=== PATIENT | male | born 1945 | race Caucasian/White ===

== ENCOUNTER → 2023-12-21 13:49 | Outpatient (REF) | payer MEDICARE, BC, SELFPAY | LOC: HWRCS 13:49 | PROVIDERS: ATTENDING PHYSICIAN Internal Medicine Cardiovascular Disease; FAMILY PHYSICIAN Internal Medicine | DX: R06.09 Other forms of dyspnea (principal); I35.1 Nonrheumatic aortic (valve) insufficiency; I71.20 Thoracic aortic aneurysm, without rupture, unspecified; I25.10 Atherosclerotic heart disease of native coronary artery without angina pectoris | CPT/HCPCS: 93306 ==

== ENCOUNTER → 2023-12-26 14:01 | Outpatient (REF) | payer MEDICARE, BC, SELFPAY | LOC: HWRAD 14:01 | PROVIDERS: ATTENDING PHYSICIAN Internal Medicine Cardiovascular Disease; FAMILY PHYSICIAN Internal Medicine | DX: R06.09 Other forms of dyspnea (principal); I35.1 Nonrheumatic aortic (valve) insufficiency; I71.20 Thoracic aortic aneurysm, without rupture, unspecified; I25.10 Atherosclerotic heart disease of native coronary artery without angina pectoris | CPT/HCPCS: 71275; Q9967 ==

== ENCOUNTER → 2024-01-03 10:47 | Outpatient (REF) | payer MEDICARE, BC, SELFPAY | LOC: HWRAD 10:47 | PROVIDERS: ATTENDING PHYSICIAN Internal Medicine Cardiovascular Disease; FAMILY PHYSICIAN Internal Medicine | DX: I71.20 Thoracic aortic aneurysm, without rupture, unspecified (principal) | CPT/HCPCS: 74174; Q9967 ==

== ENCOUNTER → 2024-01-25 08:33 | Outpatient (REF) | payer MEDICARE, BC, SELFPAY | LOC: DHCBC/DCA 08:33 | PROVIDERS: ATTENDING PHYSICIAN Internal Medicine Cardiovascular Disease; FAMILY PHYSICIAN Internal Medicine | DX: R06.09 Other forms of dyspnea (principal); I35.1 Nonrheumatic aortic (valve) insufficiency; I10 Essential (primary) hypertension | CPT/HCPCS: 78452; 93017; A9500; J2785 ==

== ENCOUNTER 2024-02-13 11:43 | Inpatient (IN) | payer MEDICARE, BC, SELFPAY ==
[2024-02-08 10:04] LABS: % Basophils 1.3 % (0-2); % Immature Granulocytes 0.2 % (0-0.5); % Lymphocytes 23.7 % (20.5-51.1); % Monocytes 7.3 % (1.7-9.3); % Neutrophils 60.5 % (42.2-75.2); Absolute Basophils 0.1 10^3/uL (0-0.2); Absolute Eosinophils 0.4 10^3/uL (0-0.7); Absolute Lymphocytes 1.3 10^3/uL (1.2-3.4); Absolute Monocytes 0.4 10^3/uL (0.1-0.6); Absolute Neutrophils 3.4 10^3/uL (1.4-6.5); Hematocrit 40.4 % (39.0-52.0); INR 1.03; Mean Corp Hgb Conc. 34.7 g/dL (33.0-37.0); Mean Corpuscular Hgb 31.3 pg (27.0-31.0); Mean Corpuscular Volume 90.4 fL (80.0-94.0); Mean Platelet Volume 10.4 fL (7.4-10.4); Nucleated Red Blood Cells % 0 % (-); PT 13.5 Sec (11.4-14.6); Platelet Count 164 10^3/uL (130-400); Red Blood Cell Count 4.47 10^6/uL (4.70-6.10); Red Cell Dist. Width 12.7 % (11.5-14.5); White Blood Cell Count 5.6 10^3/uL (4.8-10.8)
[2024-02-08 10:20] LABS: Blood Urea Nitrogen 26 mg/dl (9-20); Calcium 9.8 mg/dl (8.4-10.2); Carbon Dioxide 27 mmol/L (22-30); Chloride 105 mmol/L (98-107); Glucose 103 mg/dl (70-99); Potassium 4.5 mmol/L (3.5-5.1); Sodium 145 mmol/L (135-145); eGFR 55.88
[2024-02-13] VITALS (20 sets, daily range): BP systolic 108–165; BP diastolic 65–92; BMI 24.4
--- NOTE | 2024-02-13 11:52 | W.SUR.PREOP ---
Pre-Operative Surgical Note
-
I have examined this patient prior to the performance of the scheduled procedure.
The patient's condition is unchanged from the time of the current History and
Physical and the patient is able to undergo the scheduled procedure.
[2024-02-13] MEDS: PERIDEX 0.12% ORAL RINSE 15 ML PO (12:33)
[2024-02-13] MEDS: BACTROBAN NASAL 1 GRAM NASAL (12:33)
[2024-02-13] MEDS: NSS 500 IV (12:34)
[2024-02-13 16:03] LABS: ACT-LR - POC 385 Seconds (116-155)
[2024-02-13 16:39] LABS: ACT-LR - POC 335 Seconds (116-155)
--- NOTE | 2024-02-13 17:14 | OR.RPT ---
Operative Report
Operative Report
Date of Operation: 02/13/2024
Pre Op Diagnosis: Saccular infrarenal abdominal aortic aneurysm
Post Op Diagnosis: Saccular infrarenal abdominal aortic aneurysm
Procedure:
1.) Endovascular aortic aneurysm repair using Endologix AFX device
22�60/16�40 AFX main body
25/75 AFX suprarenal proximal extension
2.) Left renal artery balloon angioplasty and stenting (6 mm x 22 mm iCAST stent)
3.) Introduce wire/catheter into aorta from bilateral femoral artery access
4.) Ultrasound-guided percutaneous common femoral artery access, bilateral
5.) Bilateral Pro-glide closure of femoral artery access
Surgeon: Paddy Diallo III, MD
Anesthesia: General
Complications: None
Estimated Blood Loss: 20 cc
Fluoroscopy:
21.4 minutes
459 mGy
DAP 107.46
History and Indications for Procedure: 78-year-old male with saccular aneurysm of the infrarenal abdominal aorta.
Procedure in Detail: Huber Franco was correctly identified and placed supine on the operating table. After adequate induction of anesthesia the abdomen, pelvis and bilateral groins were positioned, prepped and draped in the usual sterile
fashion. Preoperative antibiotics were administered. A timeout procedure was performed with the nursing and anesthesia staff confirming the patients identity as well as the nature and laterality of the procedure.
Under ultrasound guidance, bilateral femoral artery sheath access was obtained. The arteries were patent bilaterally. A pre-close technique was performed on the right femoral artery access with 2 offset Proglide closure devices. The sutures were
secured and tucked under surgical towels for use at the end of the case. An 8 Fr sheath was placed into the right femoral access. A 7 Fr sheath was placed into the left femoral access. The patient was systemically heparinized.
From the right femoral access a KMP catheter and Bentson wire were advanced to the proximal descending thoracic aorta. The wire was exchanged out through the KMP catheter for a Lunderquist wire. From the left femoral access a Bentson wire was
advanced into the abdominal aorta.
Over the Lunderquist wire in the right femoral access I placed the AFX introducer sheath and advanced the radio-opaque sheath tip to the abdominal aorta. An En-Snare catheter was placed over a Bentson wire from the left femoral access and advanced
to the aortic bifurcation. The En-Snare was then advanced through to the catheter tip.
The contralateral limb wire of the AFX2 main body was introduced through the introducer sheath and advanced to the aortic bifurcation. The 22-60/16-40 AFX2 bifurcated main body was then loaded onto the Lunderquist wire and advanced through the
introducer sheath. The wire was snared from the contralateral side and pulled out the left femoral access and the AFX2 main body was advanced until the limbs were above the aortic bifurcation. The entire system was then pulled down onto the aortic
bifurcation. The main body was then deployed by pulling the control cord.
The contralateral limb was then deployed by pulling the yellow limb cover. Once this was completed I advanced a pigtail catheter over the contralateral limb wire until the tip was in contact with the wire lock. The contralateral limb was then pulled
as I advanced the pigtail up to release it from the wire lock. The wire was removed and the formed pigtail catheter was then advanced proximally.
The ipsilateral limb was deployed by pinning the inner core and retracting the AFX introducer sheath.
Through the introducer sheath I advanced a 25/75 supra renal endograft extension and performed an arteriogram to clearly visualize the renal arteries. The stent was positioned appropriately below the renal arteries and deployed under roadmap
guidance in the desired location. Upon the last step of deployment the stent graft did jump proximally and landed just proximal of the intended location which was immediately inferior to the left renal artery. Deployment was completed in the
delivery system was removed from the sheath. The pigtail catheter was pulled back to the aortic bifurcation and the main body rewired with a Bentson wire. The pigtail catheter was then readvanced through the main body stent graft and positioned
just proximal to the main body stent graft. An aortogram was performed and visualized partial coverage of the left renal artery by the suprarenal extension fabric. The left renal artery was patent however. The right renal artery was patent.
A Q50 balloon was introduced and used to profile the proximal and distal seal zones as well as all areas of overlap. While the balloon was in the proximal suprarenal extension I gently pulled down distally in an attempt to pull the suprarenal
extension below the left renal artery. However, each time on release of the balloon the endograft returned to its prior position partially covering the left renal artery. I did not make a significant improvement with this approach. I felt that
the degree of coverage on the left renal artery was significant and therefore I proceeded with stenting of the left renal artery to preserve flow.
Using a Glidewire and a Desire2Learn catheter we selected the left renal artery. The wire was advanced out distally and then exchanged for a Ram wire through a Quickcross. The short 7 Emirati sheath in the left femoral was exchanged out for a 7
Emirati 55 cm sheath. The radiopaque tip of the sheath was advanced across the left renal artery orifice and an arteriogram was performed to confirm proper position in the left renal artery. Under roadmap guidance I then brought into position a 6
mm x 22 mm iCAST stent. This was positioned appropriately across the orifice of the left renal artery and deployed in the desired location. Subsequent arteriogram through the 7 Emirati sheath revealed a patent left renal artery stent with brisk
flow to the left kidney. No other filling defects or stenoses were identified. Satisfied with this result we then removed the sheath and wire from the left renal artery.
A completion aortogram demonstrated an excellent technical result. The aneurysm was excluded. No endoleaks were seen. There was brisk flow through the stent and iliac limbs. The renal arteries were widely patent bilaterally. The left renal artery
stent was patent. The iliac bifurcations were preserved bilaterally.
The Proglide sutures were secured on the right after removing the sheath and wire. Protamine was administered. A single Pro-glide closure device was used to secure the left femoral artery access. Additional manual pressure was applied to the
puncture sites bilaterally for 5 minutes. Hemostasis was achieved bilaterally.
Skin glue was applied to the puncture sites bilaterally.
The patient tolerated the procedure well and was taken to the PACU in stable condition.
Attestation: I was present and responsible for the entire procedure
Signed:
Paddy Diallo III, MD
[facility] Vascular Surgery
[phone] (cell)
[2024-02-13] MEDS: LOW STRENGTH ASPIRIN 81 MG PO (17:25)
[2024-02-13] MEDS: PLAVIX 300 MG PO (17:25)
[2024-02-13 17:32] LABS: Hematocrit 34.3 % (39.0-52.0); Hemoglobin 12.3 g/dL (13.0-18.0); Mean Corp Hgb Conc. 35.9 g/dL (33.0-37.0); Mean Corpuscular Hgb 30.5 pg (27.0-31.0); Mean Corpuscular Volume 85.1 fL (80.0-94.0); Mean Platelet Volume 10.1 fL (7.4-10.4); Platelet Count 143 10^3/uL (130-400); Red Blood Cell Count 4.03 10^6/uL (4.70-6.10); Red Cell Dist. Width 12.6 % (11.5-14.5); White Blood Cell Count 7.9 10^3/uL (4.8-10.8)
[2024-02-13 17:41] LABS: Blood Urea Nitrogen 16 mg/dl (9-20); Calcium 8.7 mg/dl (8.4-10.2); Carbon Dioxide 23 mmol/L (22-30); Chloride 106 mmol/L (98-107); Estimated Creatinine Clearance 61 ml/min; Glucose 114 mg/dl (70-99); Potassium 4.3 mmol/L (3.5-5.1); Sodium 141 mmol/L (135-145); eGFR > 60.00
[2024-02-13] MEDS: NSS 1000 IV (17:56)
--- NOTE | 2024-02-13 19:11 | SUR.PHASEI ---
patient in pacu post op EVAR - awake and alert on arrival, vss, rachele at phlebotstatic axis and zeroed. doppler pulse PT and DP with strong signals. Denies pain - bothered by rodriguez cath - explained repeatedly to patient. labs drawn and sent.
plavix and aspirin given in pacu as soon as patient able to tolerate water po. tolerated well. labs as noted. at 1800 - can palpate dp and pt pulses on right foot, left by doppler. discharge to [facility]U with hand off at bedside and family updated.
Taken to ICCU waiting area.
--- NOTE | 2024-02-13 20:00 | PTCARENOTE ---
rec`d pt at 1900, pleasant and AAOx3. SR on monitor. doppler pulses. left and right groin surgical site. no loss of feeling or sensation. both open to air with surgi glue. c/d/i and no hematoma noted. HR 65-70s. 2L NC POX 98%. rodriguez in place
draining clear yellow urine. left FA 18 and rt 20 flushed and patent. rt radial A line zeroed and transduced. NS @ 80/hr. and daughter at bedside. call hooper in reach, safe environment maintained.
[2024-02-13] MEDS: BUSPAR 15 MG PO (20:04)
[2024-02-13] MEDS: HEPARIN 5000 UNITS SC (20:05)
[2024-02-13] MEDS: VALIUM INJECTION 2 MG IV (20:46)
[2024-02-13] MEDS: MELATONIN 5 MG PO (23:48)
[2024-02-14] VITALS (13 sets, daily range): BP systolic 117–157; BP diastolic 35–113; BMI 24.7
--- NOTE | 2024-02-14 00:30 | PTCARENOTE ---
pt reassessed. no changes in pt assessment call hooper in reach.
--- NOTE | 2024-02-14 03:14 | DOWNTIME ---
There was a [employer] Downtime on 02/14/2024 from 0100 to 02/14/2024 at 0300. Downtime documentation of patient's care, including medication administrations, has been reconciled in the electronic record per guidelines. Refer to the
patient's paper chart under the miscellaneous tab to see printed paper medication records and downtime forms.
[2024-02-14 04:50] LABS: Hematocrit 37.2 % (39.0-52.0); Hemoglobin 13.4 g/dL (13.0-18.0); Mean Corpuscular Hgb 30.5 pg (27.0-31.0); Mean Corpuscular Volume 84.7 fL (80.0-94.0); Mean Platelet Volume 10.2 fL (7.4-10.4); Platelet Count 162 10^3/uL (130-400); Red Blood Cell Count 4.39 10^6/uL (4.70-6.10); Red Cell Dist. Width 12.4 % (11.5-14.5); White Blood Cell Count 10.2 10^3/uL (4.8-10.8)
[2024-02-14 05:00] LABS: INR 1.13; PT 14.4 Sec (11.4-14.6)
[2024-02-14 05:01] LABS: APTT 32.2 Sec (23.4-35.0)
[2024-02-14 05:02] LABS: Blood Urea Nitrogen 19 mg/dl (9-20); Carbon Dioxide 21 mmol/L (22-30); Chloride 105 mmol/L (98-107); Estimated Creatinine Clearance 61 ml/min; Glucose 150 mg/dl (70-99); Potassium 4.6 mmol/L (3.5-5.1); Sodium 140 mmol/L (135-145); eGFR > 60.00
[2024-02-14] MEDS: NSS 1000 IV (05:27)
[2024-02-14] MEDS: MORPHINE SULFATE 2 MG IV (06:25)
--- NOTE | 2024-02-14 07:39 | CON.INTV ---
Consultation
Consultation Request
Date/Time Consultation Requested: 02/14/2024-7 AM
Date/Time Consultation Performed: 02/14/2024-7:15 AM
Requesting Provider: Dr. Diallo
Performing Provider: Dr. Shafer
Reason for Consultation: Postoperative critical care management
Medical History
-
Chief Complaint: AAA
History of Present Illness:
79-year-old male with history of hypertension, hyperlipidemia noted to have infrarenal saccular abdominal aortic aneurysm and underwent Endovascular aortic aneurysm repair using Endologix AFX device-Dr. Diallo-president [employer] consulted for postoperative
critical care management 02/14/2024. Patient is overall doing well. She denies any shortness of breath, chest pain, chest tightness, mucus, pleurisy, chest pain, abdominal pain, nausea, vomiting, weakness or leg swelling.
Past Medical History
Past Medical History: None (Hypertension. Hyperlipidemia. SSS. Aortic regurgitation. AAA. Anxiety. Chronic kidney disease stage III. Radiculopathy. Cholelithiasis. Memory loss. BPH. Polyneuropathy. Insomnia. Left TKA. Appendectomy.
Cholecystectomy. Right TKA 2022. Blepharoplasty.)
Social History
Tobacco: Non-smoker
Alcohol: None
Drug: None
Personal:
Living: With Family
Occupational Exposures: No known asbestos exposure
Environmental Exposures: No known tuberculosis exposure
Family History
Family History: Other (Father 97 years old-hypertension. Mother 95 years old-Alzheimer's.)
Allergies / Home Medications
Allergies
Allergy/AdvReac Type Severity Reaction Status Date / Time
acetaminophen [From Vicodin] Allergy Unknown Verified 02/13/24 12:33
chlorpromazine HCl Allergy freakout Verified 02/13/24 17:03
[From Thorazine]
hydrocodone [From Vicodin] Allergy Unknown Verified 02/13/24 12:33
prochlorperazine Allergy Unknown Verified 02/13/24 12:09
[From Compazine]
Home Medications
�Medication �Instructions �Recorded �Confirmed �Last Taken �Type
atorvastatin 40 mg tablet 40 mg PO DAILY High Cholesterol 02/12/14 02/13/24 02/12/24 08:00 History
amlodipine 5 mg tablet (Norvasc) 5 mg PO DAILY Blood Pressure 05/12/23 02/13/24 02/13/24 06:00 History
Brain Focus 3 tab PO DAILY 02/05/24 02/13/24 02/12/24 08:00 History
ascorbic acid (vitamin C) 1,000 mg 1 g PO Q6H 02/05/24 02/13/24 02/12/24 08:00 History
tablet (Vitamin C)
buspirone 15 mg tablet 15 mg PO BID 02/05/24 02/13/24 02/12/24 08:00 History
cholecalciferol (vitamin D3) 50 50 mcg PO DAILY 02/05/24 02/13/24 02/12/24 06:00 History
mcg (2,000 unit) capsule (Vitamin
D3)
coenzyme Q10 30 mg capsule 30 mg PO DAILY 02/05/24 02/13/24 02/12/24 08:00 History
zinc 1 tab PO DAILY 02/05/24 02/13/24 02/12/24 08:00 History
Review of Systems
-
Unable to Obtain full review of systems at this time due to: Other (Per HPI)
Vitals / Labs / Diagnostic Testing
Vital Signs
Temp Pulse Resp BP Pulse Ox
98.6 F 68 17 125/113 97
02/14/24 03:00 02/14/24 06:00 02/14/24 06:00 02/14/24 06:00 02/14/24 06:00
Lab Data
02/14/24 04:39
02/14/24 04:39
Laboratory Results
02/14/24
04:39
PT 14.4
INR 1.13
APTT 32.2
Diagnostic Testing:
Physical Exam
-
Exam:
Well-nourished and well-developed in no apparent distress
HEENT-atraumatic, normocephalic
Neck-supple, no JVD, no bruit
Heart-regular rate and rhythm-no murmurs, rubs or gallops
Chest-clear to auscultation, no wheezes, crackles
Back-no tenderness
Abdomen-soft, nontender, nondistended, no hepatosplenomegaly
Extremities-no cyanosis, clubbing, edema and good peripheral pulses
Integument-intact, no rashes, lesions or ecchymosis
Neurology-alert and oriented, nonfocal motor and sensory exam
Assessment
-
79-year-old male with history of hypertension, hyperlipidemia noted to have infrarenal saccular abdominal aortic aneurysm and underwent Endovascular aortic aneurysm repair using Endologix AFX device-Dr. Diallo-president [employer] consulted for postoperative
critical care management 02/14/2024.
Saccular infrarenal abdominal aortic aneurysm
Status post endovascular aortic aneurysm repair-Dr. Diallo-02/13/2024
Mild hyperglycemia
Conditions present prior to admission:
Hypertension.
Hyperlipidemia.
SSS.
Aortic regurgitation.
AAA.
Anxiety.
Chronic kidney disease stage III.
Radiculopathy.
Cholelithiasis.
Memory loss.
BPH.
Polyneuropathy.
Insomnia.
Left TKA. Appendectomy. Cholecystectomy. Right TKA 2022. Blepharoplasty.
Plan
Postoperative surgical intensive care unit monitoring
Supplemental oxygen as needed
Incentive spirometry
Aspiration precautions
Neuro and vascular checks per protocol
Vascular surgery following-correspondence and operative notes reviewed
DVT prophylaxis
Early nutrition
Early mobilization
The patient was last seen in the pulmonary office by Dr. Elmore-01/04/2024 for shortness of breath noted to have normal spirometry and told to follow-up in September 2024
A total of 50 minutes of critical care time was provided for this patient today. This includes management of unstable vital signs, evaluation of the patient at bedside, reviewing the patient's pertinent medical records including radiographs,
microbiology, laboratory evaluations, and discussion with primary team, consultants, pharmacy, nutrition, physical therapy, case management, charge nurse, critical care nursing, and respiratory therapy.
Data
Chest x-ray 02/13/2024-NAD
Abd CT 01/03/2024: Lung bases are clear. Abdominal aortic aneurysm 3.2 cm.
CTA 12/26/2023: Lungs are clear.
Echo 12/21/2023: Normal biventricular function, aortic sclerosis with moderate eccentric AR. Normal PA pressure.
Nuclear stress test 01/25/2024-moderate risk study, inconclusive EKG for ischemia, systolic function normal EF 65%
Mikhail 01/04/24: FVC 3.88/95%, FEV1 3.30/113%, ratio 85.� Flow volume loop is normal.
Data Reviewed
-
PFT: Report reviewed by me
EKG: Report reviewed by me
Radiology: Report reviewed by me
CT Scan: Report reviewed by me
Medical Tests (Nuc Med, Echo etc): Report reviewed by me
Labs: Labs reviewed by me
Old Records: Reviewed
Total Time Spent with Patient (in minutes): 50
--- NOTE | 2024-02-14 07:48 | W.PN.VS ---
Addendum entered and electronically signed by Ivan Holbrook MD 02/14/24 09:31:
Seen and examined with ALONSO Gracia. Agree with findings as noted below. Patient without significant complaints. Abdomen is soft, nondistended, nontender. Groins are flat bilaterally. Small bilateral groin incisions clean dry and intact. No
hematoma. Palpable pedal pulses bilaterally. Feet are warm. Labs reviewed. Plan/as discussed and noted below.
Original Note:
Today's Communication / Plan
-
Patient seen and examined at bedside with Dr. Ivan Holbrook, below plan reviewed with attending
Assessment/Plan
-
Assessment: 79-year-old male POD #1 EVAR with left renal stent
Plan:
Discontinue arterial line
Discontinue Diallo catheter
Discontinue IV fluids
Can get out of bed to chair with progression to ambulation as tolerated
Continue DAPT of 75 mg of Plavix p.o. daily and aspirin 81 mg p.o. daily
Possible discharge later this afternoon pending patient progression
Subjective Data
-
Date of Service: February 14, 2024
Patient seen and examined at bedside, offers no complaints. Denies nausea, vomiting, fever, and chills. Denies pain at bilateral groin puncture sites.
Objective Data
-
Vital Signs
Temp Pulse Resp BP Pulse Ox
98.0 F 68 17 125/113 96
02/14/24 07:42 02/14/24 06:00 02/14/24 06:00 02/14/24 06:00 02/14/24 07:42
Intake and Output
02/13/24 02/14/24 02/15/24
06:59 06:59 06:59
Intake Total 1160 / 1160
Output Total 1235 / 1235
Balance -75 / -75
Intake:
Oral fluids 50 / 50
IV fluids (Total) 1110 / 1110
Nss 1,000 ml @ 80 mls/hr IV . 960 / 960
[id number] [facility] Rx#:[id number]
normosol 150 / 150
Output:
Urine, Diallo 1235 / 1235
Lab Results
02/14/24 04:39
02/14/24 04:39
Calcium 9.0 mg/dl (8.4-10.2) 02/14/24 04:39
Physical Exam
-
AAOx3, no apparent distress
No tachycardia
No dyspnea
ABD flat, nontender, nondistended
Bilateral groin sites CDI, no evidence of hematoma, all surrounding compartments soft
Bilateral DP pulse +1 palpable
Bilateral feet warm
Diallo catheter draining clear yellow urine
[2024-02-14] MEDS: NORVASC 5 MG PO (08:44)
[2024-02-14] MEDS: LIPITOR 40 MG PO (08:44)
[2024-02-14] MEDS: VITAMIN C 1000 MG PO (08:44)
[2024-02-14] MEDS: LOW STRENGTH ASPIRIN 81 MG PO (08:44)
[2024-02-14] MEDS: PLAVIX 75 MG PO (08:44)
[2024-02-14] MEDS: BUSPAR 15 MG PO (08:44)
[2024-02-14] MEDS: VITAMIN D3 (cholecalciferol) 50 MCG PO (08:44)
[2024-02-14] MEDS: HEPARIN 5000 UNITS SC (08:45)
--- NOTE | 2024-02-14 09:30 | PTCARENOTE ---
pt awake and alert , NSR on monitor , BP mildly elevated 167/81 pt given oral antihypertensive , pt is mildly anxious , had not slept all night , uncomfortable in bed, Diallo removed as ordered, Harris removed as ordered, pt to get oob
--- NOTE | 2024-02-14 11:54 | CM ---
MEt with patient and and dgtr. Patient had planned AAA repair yesterday. He lives with in 2 level home. 3 steps, landing and 1 more step into home. 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 UP full flight to full bath and bedroom. He has
Rolling walker if needed from his previous TKR surgery.NO history of VNA or SNF.
He plans to go home with family support and outpatient follow up with his surgeon.
PCP DR. Benton Mayer
Pharmacy: [facility].
Plan;Home no needs.
[2024-02-14] MEDS: ZINC 50 MG PO (12:15)
--- NOTE | 2024-02-14 12:45 | PTCARENOTE ---
pt oob tolerating well, pt ambulating in room with assistance to bathroom , tolerating diet , pt and daughter at bedside and updated current plan of care and condition
--- NOTE | 2024-02-14 12:55 | W.DS.TRANS ---
DC Summary - [employer]
-
Discharge Instructions:
Discharge Diagnosis/Procedures EVAR
Diet No restrictions,As tolerated
Activity No strenuous activity
Driving Restrictions No driving for 1 week
Bathing Restrictions OK to Shower
Instructions:
Stand-Alone Forms: DC Instr - Vascular OR
Changes to Home Medications: Yes
Discharge Medications:
DC Medications w/original date entered in [facility]
atorvastatin 40 mg tablet 40 mg PO DAILY High Cholesterol 02/12/14
amlodipine 5 mg tablet (Norvasc) 5 mg PO DAILY Blood Pressure 05/12/23
Brain Focus 3 tab PO DAILY 02/05/24
ascorbic acid (vitamin C) 1,000 mg tablet (Vitamin C) 1 g PO Q6H 02/05/24
buspirone 15 mg tablet 15 mg PO BID 02/05/24
cholecalciferol (vitamin D3) 50 mcg (2,000 unit) capsule (Vitamin D3) 50 mcg PO DAILY 02/05/24
coenzyme Q10 30 mg capsule 30 mg PO DAILY 02/05/24
zinc 1 tab PO DAILY 02/05/24
aspirin 81 mg chewable tablet 81 mg PO DAILY #90 tabs 02/14/24
clopidogrel 75 mg tablet 75 mg PO DAILY #90 tabs 02/14/24
Home Medication Changes
Added ASA and plavix
Pending Results: No
--- NOTE | 2024-02-14 14:08 | PTCARENOTE ---
pt written for DC , IV sites DC , instructions given to pt and , both verbalized understanding ,
== END 2024-02-14 14:27 | disposition home or self-care (01) | DRG 269 ==
LOC: ICU 11:43
PROVIDERS: Nurse Practitioner; ADMITTING PHYSICIAN Surgery Vascular Surgery; CONSULT PHYSICIAN Internal Medicine Critical Care Medicine; FAMILY PHYSICIAN Internal Medicine
PROC: 047A3DZ Dilation of Left Renal Artery with Intraluminal Device, Percutaneous Approach (ICD-10-PCS; 2024-02-13)
PROC: 04V03EZ Restriction of Abdominal Aorta with Branched or Fenestrated Intraluminal Device, One or Two Arteries, Percutaneous Approach (ICD-10-PCS; 2024-02-13)
DX: I71.43 Infrarenal abdominal aortic aneurysm, without rupture (principal); I12.9 Hypertensive chronic kidney disease with stage 1 through stage 4 chronic kidney disease, or unspecified chronic kidney disease; N18.30 Chronic kidney disease, stage 3 unspecified; I35.1 Nonrheumatic aortic (valve) insufficiency; I49.5 Sick sinus syndrome; N40.0 Benign prostatic hyperplasia without lower urinary tract symptoms; E78.5 Hyperlipidemia, unspecified; F41.9 Anxiety disorder, unspecified; G47.00 Insomnia, unspecified; G62.9 Polyneuropathy, unspecified; R73.9 Hyperglycemia, unspecified; Z79.899 Other long term (current) drug therapy; Z87.19 Personal history of other diseases of the digestive system; Z86.16 Personal history of COVID-19; Z90.49 Acquired absence of other specified parts of digestive tract; Z90.89 Acquired absence of other organs; Z96.653 Presence of artificial knee joint, bilateral; Z88.8 Allergy status to other drugs, medicaments and biological substances; Z82.49 Family history of ischemic heart disease and other diseases of the circulatory system
CPT/HCPCS: 34705; 36245; 36415; 37236; 71045; 80048; 85025; 85027; 85610; 85730; 86850; 86900; 86901; 93005; C1760; C1769; C1773; C1894; C2628; Q9967

== ENCOUNTER → 2024-03-22 13:34 | Outpatient (REF) | payer MEDICARE, BC, SELFPAY | LOC: HWRAD 13:34 | PROVIDERS: ATTENDING PHYSICIAN Physician Assistant; FAMILY PHYSICIAN Internal Medicine Geriatric Medicine | DX: I71.43 Infrarenal abdominal aortic aneurysm, without rupture (principal) | CPT/HCPCS: 74174; Q9967 ==

== ENCOUNTER → 2024-04-29 13:49 | Outpatient (REF) | payer MEDICARE, BC, SELFPAY | LOC: HWRCS 13:49 | PROVIDERS: ATTENDING PHYSICIAN Thoracic Surgery (Cardiothoracic Vascular Surgery); FAMILY PHYSICIAN Internal Medicine | DX: Q25.43 Congenital aneurysm of aorta (principal); Z01.818 Encounter for other preprocedural examination | CPT/HCPCS: 75572; 93306; Q9967 ==

== ENCOUNTER → 2024-12-04 16:16 | Outpatient (REF) | payer MEDICARE, BC, SELFPAY | LOC: RAD 16:16 | PROVIDERS: ATTENDING PHYSICIAN Nurse Practitioner Acute Care; FAMILY PHYSICIAN Internal Medicine Geriatric Medicine | DX: Q25.43 Congenital aneurysm of aorta (principal) | CPT/HCPCS: 93306 ==

== ENCOUNTER 2024-12-19 07:45 | Outpatient (RCR) | payer MEDICARE, BC, SELFPAY ==
[2024-12-19 08:00] VITALS: BP 135/66
[2024-12-19] MEDS: SODIUM BICARBONATE 1150 MEQ IV (08:13)
== END 2024-12-26 23:59 | disposition home or self-care (01) ==
LOC: OID 07:45
PROVIDERS: ATTENDING PHYSICIAN Nurse Practitioner Acute Care
DX: Q25.43 Congenital aneurysm of aorta (principal)
CPT/HCPCS: 71275; 74174; 96365; 96366; Q9967

== ENCOUNTER → 2025-02-26 12:35 | Outpatient (REF) | payer MEDICARE, BC, SELFPAY ==
[2025-02-26 13:20] LABS: Hematocrit 42.0 % (39.0-52.0); Hemoglobin 14.2 g/dL (13.0-18.0); Mean Corp Hgb Conc. 33.8 g/dL (33.0-37.0); Mean Corpuscular Volume 92.1 fL (80.0-94.0); Nucleated Red Blood Cells % 0 % (-); Platelet Count 160 10^3/uL (130-400); Red Cell Dist. Width 13.2 % (11.5-14.5)
[2025-02-26 13:33] LABS: Urine Character Clear (Clear)
[2025-02-26 14:31] LABS: ALT (SGPT) 42 U/L (0-50); AST (SGOT) 41 U/L (17-59); Albumin 5.1 g/dl (3.5-5.0); Alkaline Phosphatase 81 U/L (38-126); Blood Urea Nitrogen 21 mg/dl (9-20); Calcium 9.7 mg/dl (8.4-10.2); Carbon Dioxide 30 mmol/L (22-30); Chloride 105 mmol/L (98-107); Glucose 97 mg/dl (70-99); HDL Cholesterol 71 mg/dl; LDL Cholesterol, Calculated 43 mg/dl; Potassium 4.7 mmol/L (3.5-5.1); Sodium 142 mmol/L (135-145); Total Protein 7.7 g/dl (6.3-8.2); Very Low Density Lipoprotein 14 mg/dl (0-30); eGFR 50.49
[2025-02-26 14:35] LABS: Vitamin D, 25-OH*** 44.9 ng/mL (30-80)
[2025-02-26 14:48] LABS: PSA, Total - Diagnostic 4.62 ng/ml (0.0-4.0); TSH 1.63 uIU/ml (0.47-4.68)
[2025-02-26 15:12] LABS: Urine Red Blood Cell 0-2 /HPF (0-2); Urine Squamous Cell 0-2 /LPF (Few)
[2025-02-26 15:24] LABS: Folate 13.9 ng/ml (2.76-20); Vitamin B12 563 pg/ml (239-931)
[2025-02-27 10:50] LABS: Lyme Antibody Screen, EIA Negative (Negative)
== END ==
LOC: RAD 12:35
PROVIDERS: ATTENDING PHYSICIAN Internal Medicine; FAMILY PHYSICIAN Internal Medicine Geriatric Medicine
DX: I35.1 Nonrheumatic aortic (valve) insufficiency (principal); I10 Essential (primary) hypertension; E78.5 Hyperlipidemia, unspecified; N28.9 Disorder of kidney and ureter, unspecified; I35.8 Other nonrheumatic aortic valve disorders; M17.11 Unilateral primary osteoarthritis, right knee; N40.1 Benign prostatic hyperplasia with lower urinary tract symptoms; E55.9 Vitamin D deficiency, unspecified; Z13.31 Encounter for screening for depression; R41.89 Other symptoms and signs involving cognitive functions and awareness; R19.7 Diarrhea, unspecified; D51.9 Vitamin B12 deficiency anemia, unspecified
CPT/HCPCS: 36415; 74018; 80053; 80061; 81003; 81015; 82306; 82607; 82746; 84153; 84443; 85025; 86618

== ENCOUNTER → 2025-02-27 12:03 | Outpatient (REF) | payer MEDICARE, BC, SELFPAY ==
[2025-02-27 13:08] LABS: Hematocrit 37.8 % (39.0-52.0); Hemoglobin 12.4 g/dL (13.0-18.0); Mean Corp Hgb Conc. 32.8 g/dL (33.0-37.0); Mean Corpuscular Volume 90.9 fL (80.0-94.0); Nucleated Red Blood Cells % 0 % (-); Platelet Count 151 10^3/uL (130-400); Red Cell Dist. Width 13.1 % (11.5-14.5)
[2025-02-27 13:44] LABS: Albumin 4.6 g/dl (3.5-5.0); Blood Urea Nitrogen 24 mg/dl (9-20); Calcium 9.5 mg/dl (8.4-10.2); Carbon Dioxide 30 mmol/L (22-30); Chloride 103 mmol/L (98-107); Glucose 87 mg/dl (70-99); Potassium 4.7 mmol/L (3.5-5.1); Sodium 139 mmol/L (135-145); eGFR 50.49
[2025-02-27 14:14] LABS: Uric Acid 6.4 mg/dl (3.5-8.5)
== END ==
LOC: REG 12:03
PROVIDERS: ATTENDING PHYSICIAN Specialist; FAMILY PHYSICIAN Internal Medicine Geriatric Medicine; OTHER PHYSICIAN Internal Medicine
DX: N18.31 Chronic kidney disease, stage 3a (principal); R19.7 Diarrhea, unspecified
CPT/HCPCS: 36415; 80069; 82784; 83520; 83521; 83970; 84155; 84156; 84165; 84550; 85025; 86334; 86335; 87324; 87449

== ENCOUNTER → 2025-03-06 13:41 | Outpatient (REF) | payer MEDICARE, BC, SELFPAY ==
[2025-03-06 14:45] LABS: Hematocrit 38.8 % (39.0-52.0); Hemoglobin 13.0 g/dL (13.0-18.0); Mean Corp Hgb Conc. 33.5 g/dL (33.0-37.0); Mean Corpuscular Volume 90.7 fL (80.0-94.0); Nucleated Red Blood Cells % 0 % (-); Platelet Count 165 10^3/uL (130-400); Red Cell Dist. Width 13.0 % (11.5-14.5)
[2025-03-06 15:14] LABS: Blood Urea Nitrogen 20 mg/dl (9-20); Calcium 9.5 mg/dl (8.4-10.2); Carbon Dioxide 33 mmol/L (22-30); Chloride 105 mmol/L (98-107); Glucose 47 mg/dl (70-99); Potassium 4.8 mmol/L (3.5-5.1); Sodium 141 mmol/L (135-145); eGFR 46.48
== END ==
LOC: REG 13:41
PROVIDERS: ATTENDING PHYSICIAN Internal Medicine Geriatric Medicine; OTHER PHYSICIAN Internal Medicine; REFERRING PHYSICIAN Specialist
DX: D58.2 Other hemoglobinopathies (principal); R94.4 Abnormal results of kidney function studies
CPT/HCPCS: 36415; 80048; 85025

== ENCOUNTER → 2025-03-07 07:27 | Outpatient (REF) | payer MEDICARE, BC, SELFPAY ==
[2025-03-07 08:42] LABS: ALT (SGPT) 29 U/L (0-50); AST (SGOT) 32 U/L (17-59); Albumin 4.8 g/dl (3.5-5.0); Alkaline Phosphatase 92 U/L (38-126); Blood Urea Nitrogen 27 mg/dl (9-20); Calcium 9.6 mg/dl (8.4-10.2); Carbon Dioxide 30 mmol/L (22-30); Chloride 107 mmol/L (98-107); Glucose 99 mg/dl (70-99); Potassium 4.8 mmol/L (3.5-5.1); Sodium 144 mmol/L (135-145); Total Protein 7.7 g/dl (6.3-8.2); eGFR 37.35
[2025-03-07 09:06] LABS: Cortisol, Random 11.0 ug/dl
== END ==
LOC: REG 07:27
PROVIDERS: ATTENDING PHYSICIAN Internal Medicine Geriatric Medicine
DX: E16.2 Hypoglycemia, unspecified (principal)
CPT/HCPCS: 36415; 80053; 82397; 82533; 83525

== ENCOUNTER → 2025-03-11 06:25 | Outpatient (REF) | payer MEDICARE, BC, SELFPAY | LOC: REG 06:25 | PROVIDERS: ATTENDING PHYSICIAN Internal Medicine Geriatric Medicine | DX: K86.89 Other specified diseases of pancreas (principal); E16.1 Other hypoglycemia; E16.2 Hypoglycemia, unspecified | CPT/HCPCS: 36415; 84681 ==

== ENCOUNTER → 2025-03-27 12:54 | Outpatient (REF) | payer MEDICARE, BC, SELFPAY | LOC: RAD 12:54 | PROVIDERS: ATTENDING PHYSICIAN Surgery Vascular Surgery; FAMILY PHYSICIAN Internal Medicine Geriatric Medicine; OTHER PHYSICIAN Internal Medicine Cardiovascular Disease | DX: I71.40 Abdominal aortic aneurysm, without rupture, unspecified (principal) | CPT/HCPCS: 76770 ==